=== PATIENT | female | born 1995 | race Two or more races ===

== ENCOUNTER 2024-12-07 16:44 | Emergency (ER) | payer OTHER ==
[~2024-12-07] VITALS: Ht 162.6 cm; Wt 72.6 kg
[2024-12-07] MEDS ORDERED: SYNTHROID75 MCG (16:56)
[2024-12-07] MEDS ORDERED: PRENATAL + DHA1 EAC1 (16:56)
[2024-12-07] MEDS ORDERED: ISORDIL TITRADOS5 MG (16:57)
[2024-12-07 17:56] LABS: BASO % 0.3 % (0.1-1.2); EOS # 0.13 (0.04-0.54); EOS % 1.4 % (0.7-7.0); HEMATOCRIT 30.7 % (34.1-44.9); HEMOGLOBIN 10.4 g/dL (11.2-15.7); LYMPH # 1.34 (1.18-3.74); LYMPH % 14.2 % (19.3-53.1); MEAN CORPUSCULAR HEMOGLOBIN 30.1 pg (25.6-32.2); MONO # 0.67 (0.24-0.82); MONO % 7.1 % (4.7-12.5); NEUT # 7.18 (1.56-6.13); PLATELET COUNT 338 K/uL (163-369); RED BLOOD COUNT 3.46 M/uL (3.93-5.22); RED CELL DISTRIBUTION WIDTH 13.4 % (11.6-14.4)
[2024-12-07 18:21] LABS: BILIRUBIN TOTAL 0.18 mg/dL (0.3-1.2); CALCIUM 9.1 mg/dL (8.5-10.1); CREATININE SERUM 0.49 mg/dL (0.55-1.02); GFR 151.49; GLOBULINA 4.1 G/DL (2.4-3.5); POTASSIUM 4.22 mEq/L (3.5-5.1); TOTAL PROTEIN 7.1 gm/dL (6.4-8.2)
[2024-12-07 18:36] LABS: URINE APPEARANCE Clear; URINE BILIRRUBIN Negative (NEGATIVE); URINE BLOOD Negative; URINE COLOR Yellow; URINE GLUCOSE Negative (NEGATIVE); URINE KETONE Negative (NEGATIVE); URINE LEUKOCYTE Trace; URINE NITRATE Negative; URINE PROTEIN Negative (NEGATIVE); URINE UROBILINOGEN 0.2 E.U./dl
[2024-12-07 18:40] LABS: URINE EPITHELIAL CELLS 16.3 uL (0.0-38.8); URINE RBC 20.6 uL (0.0-20.8); URINE WBC 45.2 uL (0.0-23.2)
[2024-12-07 19:00] LABS: URINE CAST 0.14 uL (0.0-1.40)
[2024-12-07] MEDS ORDERED: PROTONIX40 MG PO (19:10)
[2024-12-07] MEDS ORDERED: AMOX1TAB5 PO (19:10)
== END 2024-12-07 19:19 | disposition home or self-care (01) ==
LOC: ER 16:44
PROVIDERS: General Practice
DX: Z34.90 Encounter for supervision of normal pregnancy, unspecified, unspecified trimester (principal); Z3A.21 21 weeks gestation of pregnancy; I10 Essential (primary) hypertension; R00.2 Palpitations; E03.8 Other specified hypothyroidism

== ENCOUNTER 2025-03-09 14:28 | Inpatient (IN) | payer OTHER ==
[~2025-03-09] VITALS: Ht 152.4 cm; Wt 76.7 kg
[~2025-03-09 14:28] MED LIST: AMOX1TAB5 PO; ISORDIL TITRADOS5 MG; PRENATAL + DHA1 EAC1; PROTONIX40 MG PO; SYNTHROID75 MCG
[2025-03-09 15:00] VITALS: BP 123/79
[2025-03-09] MEDS ORDERED: RINGERS SOLUTION,LACTATED 1,000 ML IV SCH (15:30)
[2025-03-09] MEDS ORDERED: CHILDREN'S ASPI81 MG PO (15:56)
[2025-03-09] MEDS ORDERED: IRON325 MG PO (15:57)
[2025-03-09] MEDS ORDERED: FOLIC ACID0.8 M1 PO (15:57)
[2025-03-09] MEDS ORDERED: BETAMETHASONE ACETATE,SOD PHOS 30 MG/5 ML ML IM SCH (16:00)
[2025-03-09 16:04] LABS: URINE APPEARANCE Cloudy; URINE BILIRRUBIN Negative (NEGATIVE); URINE BLOOD Negative; URINE COLOR Yellow; URINE GLUCOSE Negative (NEGATIVE); URINE KETONE Negative (NEGATIVE); URINE LEUKOCYTE Small; URINE NITRATE Negative; URINE PROTEIN 30 (NEGATIVE); URINE UROBILINOGEN 1.0 E.U./dl
[2025-03-09 16:05] LABS: BASO % 0.4 % (0.1-1.2); EOS # 0.07 (0.04-0.54); EOS % 0.9 % (0.7-7.0); LYMPH # 1.16 (1.18-3.74); LYMPH % 14.3 % (19.3-53.1); MEAN PLATELET VOLUME 11.10 fl (9.4-12.4); MONO # 0.53 (0.24-0.82); MONO % 6.5 % (4.7-12.5); NEUT # 6.26 (1.56-6.13); NEUT % 76.9 % (34.0-71.1); RED CELL DISTRIBUTION WIDTH 13.2 % (11.6-14.4)
[2025-03-09 16:08] LABS: URINE BACTERIA 4677.5 uL (0.0-1933); URINE CAST 1.61 uL (0.0-1.40); URINE EPITHELIAL CELLS 27.6 uL (0.0-38.8); URINE RBC 13.7 uL (0.0-20.8); URINE WBC 61.0 uL (0.0-23.2)
[2025-03-09 16:23] LABS: INR 0.98
[2025-03-09 16:38] LABS: ALT/SGPT 17.0 U/L (12-78); AST/SGOT 19.0 U/L (15-37); BILIRUBIN TOTAL 0.38 mg/dL (0.3-1.2); BUN CREA RATIO 20.0 (7.0-25.0); CREATININE SERUM 0.49 mg/dL (0.55-1.02); GFR 151.49; GLOBULINA 3.7 G/DL (2.4-3.5); GLUCOSE FASTING 70.0 mg/dL (65-100); OSMOLALITY SERUM 275.0 MOSM/KG (275-295)
[2025-03-09] MEDS ORDERED: CEFAZOLIN SODIUM 1,000 MG VIAL IV SCH (19:15)
[2025-03-09 19:25] VITALS: BP 133/83; O2SAT 99
[2025-03-09] MEDS ORDERED: ERYTHROMYCIN BASE OPHT 1GM EACH TUBE OP ONE (20:15)
[2025-03-09] MEDS ORDERED: OXYTOCIN 10 UNITS/ML VIAL IV ONE (20:15)
[2025-03-09] MEDS ORDERED: MORPHINE SULFATE 4 MG/ML VIAL IV ONE (22:45)
[2025-03-09] MEDS ORDERED: MORPHINE SULFATE 4 MG/ML VIAL IV SCH (22:45)
[2025-03-09] MEDS ORDERED: KETOROLAC TROMETHAMINE 60 MG VIAL IM ONE (22:45)
[2025-03-10] MEDS ORDERED: MORPHINE SULFATE 4 MG/ML VIAL IV ONE
[2025-03-10 03:39] LABS: BASO % 0.1 % (0.1-1.2); EOS # 0.00 (0.04-0.54); EOS % 0.0 % (0.7-7.0); LYMPH # 0.88 (1.18-3.74); LYMPH % 6.2 % (19.3-53.1); MEAN PLATELET VOLUME 11.30 fl (9.4-12.4); MONO # 0.53 (0.24-0.82); MONO % 3.7 % (4.7-12.5); NEUT # 12.73 (1.56-6.13); NEUT % 89.3 % (34.0-71.1); RED CELL DISTRIBUTION WIDTH 12.7 % (11.6-14.4)
[2025-03-10 03:57] VITALS: BP 119/73
[2025-03-10] MEDS ORDERED: hydrALAZINE HCL 20 MG VIAL IV ONE (04:15)
[2025-03-10] MEDS ORDERED: OxyCODONE HCL 5 MG TABLET (ROXICODONE) PO SCH (07:00)
[2025-03-10] MEDS ORDERED: ACETAMINOPHEN 325 MG TABLET PO SCH (07:00)
[2025-03-10] MEDS ORDERED: SIMETHICONE 125 MG CAPSULE PO SCH (09:00)
[2025-03-10] MEDS ORDERED: DOCUSATE SODIUM 100MG CAP PO SCH (09:00)
[2025-03-10 09:54] VITALS: BP 124/80
[2025-03-10 16:19] VITALS: BP 139/89
[2025-03-10 20:00] VITALS: BP 127/80
[2025-03-11] VITALS: BP 126/80
[2025-03-11 08:00] VITALS: BP 115/78
[2025-03-11] MEDS ORDERED: ERYTHROMYCIN BASE OPHT 1GM EACH TUBE OP ONE (15:00)
[2025-03-12] VITALS: BP 143/91
[2025-03-12 03:00] VITALS: BP 138/89
[2025-03-12 08:00] VITALS: BP 131/88
[2025-03-12 15:14] LABS: BASO % 0.3 % (0.1-1.2); EOS # 0.10 (0.04-0.54); EOS % 1.2 % (0.7-7.0); LYMPH # 1.22 (1.18-3.74); LYMPH % 14.2 % (19.3-53.1); MEAN PLATELET VOLUME 10.30 fl (9.4-12.4); MONO # 0.51 (0.24-0.82); MONO % 5.9 % (4.7-12.5); NEUT # 6.61 (1.56-6.13); NEUT % 77.0 % (34.0-71.1); RED CELL DISTRIBUTION WIDTH 13.2 % (11.6-14.4)
[2025-03-12 19:09] VITALS: BP 140/66; O2SAT 100
[2025-03-12 21:10] VITALS: BP 144/80; O2SAT 98
[2025-03-13 01:30] VITALS: BP 145/91
[2025-03-13 08:37] VITALS: BP 131/85
[2025-03-13] MEDS ORDERED: COLACE100 MG PO (11:00)
[2025-03-13] MEDS ORDERED: IBU800 MG PO (11:00)
== END 2025-03-13 14:38 | disposition home or self-care (01) | DRG 784 ==
LOC: OB/GYN 14:28 → LDR 14:28 → O/R 21:33 → OB/GYN 21:44
PROVIDERS: ADMIT Specialist; ATTEND Specialist
PROC: 0UB70ZZ Excision of Bilateral Fallopian Tubes, Open Approach (ICD-10-PCS; 2025-03-09)
PROC: 4A1HXCZ Monitoring of Products of Conception, Cardiac Rate, External Approach (ICD-10-PCS; 2025-03-09)
PROC: BY4GZZZ Ultrasonography of Third Trimester, Multiple Gestation (ICD-10-PCS; 2025-03-09)
PROC: BU4CZZZ Ultrasonography of Uterus and Ovaries (ICD-10-PCS; 2025-03-09)
PROC: 10D00Z1 Extraction of Products of Conception, Low, Open Approach (ICD-10-PCS; principal; 2025-03-09 22:30)
DX: O60.14X2 Preterm labor third trimester with preterm delivery third trimester, fetus 2 (principal); O10.02 Pre-existing essential hypertension complicating childbirth; O32.8XX1 Maternal care for other malpresentation of fetus, fetus 1; O33.8 Maternal care for disproportion of other origin; O36.8132 Decreased fetal movements, third trimester, fetus 2; O30.043 Twin pregnancy, dichorionic/diamniotic, third trimester; O26.843 Uterine size-date discrepancy, third trimester; Z3A.34 34 weeks gestation of pregnancy; Z37.2 Twins, both liveborn; Z30.2 Encounter for sterilization